=== PATIENT | male | born 1990 | race Caucasian/White ===

== ENCOUNTER 2020-05-04 16:28 | Outpatient (CLI) | payer BC, SELFPAY ==
--- NOTE | ~2020-05-04 | US_ITS ---
EXAMINATION: US thyroid EXAM DATE: 05/04/2020 17:55 INDICATION: History papillary adenocarcinoma of the thyroid. TECHNIQUE: Multiple grayscale and Doppler images of the thyroid surgical bed were obtained (by a tech nologist who performed the scan) and subsequently reviewed. Individual nodules and recommendations m ay be reported in accordance with TI-RADS system as designated by the 2017 ACR White Paper TI-RADS co mmittee. There is no prior study for comparison. FINDINGS: No evidence of soft tissue or lymphadenopathy in the thyroidectomy bed. No fluid collection. IMPRESSION: Unremarkable thyroidectomy bed. Reviewed, dictated and finalized at location A.
== END 2020-05-04 16:29 | disposition home or self-care (01) ==
PROVIDERS: PCP Internal Medicine; Visit Provider Internal Medicine Endocrinology, Diabetes & Metabolism
DX: Z85.850 Personal history of malignant neoplasm of thyroid (principal)
CPT/HCPCS: 76536

== ENCOUNTER 2023-03-12 13:35 | Outpatient (CLI) | payer BC, SELFPAY ==
--- NOTE | ~2023-03-12 | US_ITS ---
EXAMINATION: US thyroid DATE: 03/12/2023 14:02 INDICATION: Post procedural hypothyroidism. TECHNIQUE: Multiple ultrasound images of the thyroid were obtained. COMPARISON: Ultrasound 05/04/2020, 07/17/16 FINDINGS: The thyroid is absent. There is no abnormal tissue in the thyroidectomy bed. IMPRESSION: 1. Thyroidectomy. Reviewed, dictated and finalized at location A. IMPRESSION: 1. Thyroidectomy.
== END 2023-03-12 13:36 | disposition home or self-care (01) ==
PROVIDERS: PCP Internal Medicine; Visit Provider Internal Medicine Endocrinology, Diabetes & Metabolism
DX: E89.0 Postprocedural hypothyroidism (principal)
CPT/HCPCS: 76536